=== PATIENT | female | born 1950 | race Caucasian/White ===

== ENCOUNTER 2016-08-22 14:56 | Emergency (ER) | payer MEDICARE ==
[~2016-08-22] VITALS: Ht 165.1 cm; Wt 61.2 kg
[2016-08-22] MEDS ORDERED: LEVOTHYROXINE100 MCG ORAL (15:11)
[2016-08-22] MEDS ORDERED: NKM (15:11)
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
[2016-08-22 16:00] VITALS: BP 167/79
[2016-08-22 16:25] VITALS: BP 167/79
== END 2016-08-22 16:25 | disposition left against medical advice (07) ==
LOC: EMR 15:14
DX: S20.412A Abrasion of left back wall of thorax, initial encounter (principal); S39.012A Strain of muscle, fascia and tendon of lower back, initial encounter; Y04.2XXA Assault by strike against or bumped into by another person, initial encounter; Y92.9 Unspecified place or not applicable
CPT/HCPCS: 99283